=== PATIENT | female | born 1965 | race Hispanic/Latino ===

== ENCOUNTER → 2017-08-31 | Outpatient (CLI) | payer OTHER, MEDICARE ==
[~2017-08-31] MED LIST: ASPI-1197 PO; FENO145T37 PO; LOSA25TA21 PO; METF500T6 PO
== END | disposition home or self-care (01) ==
LOC: RAH 08:31
PROVIDERS: ATTEND Internal Medicine
DX: Z12.31 Encounter for screening mammogram for malignant neoplasm of breast (principal)
CPT/HCPCS: 77067

== ENCOUNTER → 2017-09-15 | Outpatient (CLI) | payer OTHER, MEDICARE | END | disposition home or self-care (01) | LOC: RAH 14:36 | PROVIDERS: ATTEND Internal Medicine | DX: R92.8 Other abnormal and inconclusive findings on diagnostic imaging of breast (principal); R92.1 Mammographic calcification found on diagnostic imaging of breast | CPT/HCPCS: 76641; 77065 ==

== ENCOUNTER 2021-05-14 02:06 | Observation (INO) | payer OTHER, MEDICARE ==
[~2021-05-14] VITALS: Ht 160 cm; Wt 80.8 kg
[~2021-05-14 02:06] MED LIST changes: +FENO145T26 PO; -FENO145T37 PO; -LOSA25TA21 PO; +LOSA25TA41 PO; +METF-444 PO; -METF500T6 PO
[2021-05-14] MEDS ORDERED: ASPIRIN 325MG TAB PO ONE (02:30)
[2021-05-14] MEDS ORDERED: 0.9%NACL 1000ML 1,000 ML IV ONE ×2 (02:30→02:32)
[2021-05-14] MEDS ORDERED: ONDANSETRON 4MG INJ IVP ONE (02:30)
[2021-05-14] MEDS ORDERED: DILTIAZEM 25MG INJ IVP ONE (02:30)
[2021-05-14 02:31] LABS: BASOPHILS % (AUTO) 0.8 % (0.0-5.0); EOSINOPHILS % (AUTO) 0.9 % (0.0-8.0); HEMATOCRIT 41.2 % (36-48); LYMPHOCYTES % (AUTO) 32.3 % (21.0-51.0); MEAN CORPUSCULAR HEMOGLOBIN 30.7 pg (27.0-33.0); MEAN CORPUSCULAR HGB CONC 34.2 g/dL (32.0-36.0); MEAN CORPUSCULAR VOLUME 89.6 fL (79-99); MONOCYTES % (AUTO) 8.1 % (3.0-13.0); NEUTROPHILS % (AUTO) 57.6 % (40.0-77.0); PLATELET COUNT (AUTO) 281 K/uL (130-400); RED CELL DISTRIBUTION WIDTH 12.8 % (11.0-15.5); WHITE BLOOD COUNT (AUTO) 10.6 K/uL (4.8-10.8)
[2021-05-14] MEDS ORDERED: ONDANSETRON 4MG INJ ONE (02:31)
[2021-05-14] MEDS ORDERED: ASPIRIN 325MG TAB ONE (02:32)
[2021-05-14] MEDS ORDERED: DILTIAZEM 50MG VIAL IV ONE ×2 (02:35→03:49)
[2021-05-14 02:46] LABS: CREATININE 0.9 mg/dL (0.5-1.5); POTASSIUM 3.4 mmol/L (3.5-5.1)
[2021-05-14 02:58] LABS: ALBUMIN 3.8 g/dL (3.5-5.0); B-TYPE NATRIURETIC PEPTIDE 20 pg/mL (0-100); BILIRUBIN,TOTAL 0.4 mg/dL (0.2-1.0); MAGNESIUM 1.7 mg/dL (1.80-2.40); THYROID STIMULATING HORMONE 1.95 uIU/mL (0.36-3.74); TOTAL PROTEIN, SERUM 7.9 g/dL (6.0-8.3)
[2021-05-14 03:15] LABS: APPEARANCE,URINE Clear (CLEAR); BILIRUBIN,URINE Negative (NEGATIVE); COLOR,URINE Yellow (YELLOW); GLUCOSE, URINE (UA) >=1000 mg/dL (NEGATIVE); KETONES,URINE Trace mg/dL (NEGATIVE); LEUKOCYTE ESTERASE ,URINE Negative (NEGATIVE); NITRATE,URINE Negative (NEGATIVE); OCCULT BLOOD,URINE Negative (NEGATIVE); PH,URINE 5.5 (5.0-8.0); PROTEIN,URINE Negative (NEGATIVE); UROBILINOGEN,URINE 0.2 mg/dL (0.2-1.0)
[2021-05-14] MEDS ORDERED: DILTIAZEM 125 MG/25 ML INJ 125 MG in 0.9%NACL 100ML 100 ML IV ONE (04:00)
[2021-05-14] MEDS ORDERED: 0.9%NACL 100ML 100 ML ONE (04:13)
[2021-05-14] MEDS ORDERED: DILTIAZEM 125 MG/25 ML INJ IV ONE (04:13)
[2021-05-14 04:23] LABS: BACTERIA,URINE Few /HPF (None Seen); RBC,URINE None Seen /HPF (0-1); WBC,URINE 0-1 /HPF (0-1)
[2021-05-14] MEDS ORDERED: DILTIAZEM 125MG+100 ML NS 125 ML IV SCH (05:00)
[2021-05-14] MEDS ORDERED: GLUCAGON 1MG KIT 1 MG ML IM PRN ×2 (05:00→10:00)
[2021-05-14] MEDS ORDERED: DEXTROSE 50%-WATER 50 ML DISP.SYRIN IV PRN ×2 (05:00→10:00)
[2021-05-14] MEDS ORDERED: DIGOXIN 250 MCG/ML 2ML AMP IV SCH (07:30)
[2021-05-14] MEDS: INSULIN R PO SS1 SQ SCH ×4 (07:30→21:00)
[2021-05-14] MEDS ORDERED: ANAS1TAB49 PO (08:29)
[2021-05-14] MEDS ORDERED: BUSP5TAB3 PO (08:29)
[2021-05-14] MEDS ORDERED: CHOL12502 PO (08:29)
[2021-05-14] MEDS ORDERED: METF-446 PO (08:29)
[2021-05-14] MEDS ORDERED: TIZA-194 PO (08:29)
[2021-05-14] MEDS ORDERED: LISI2.5T13 PO (08:29)
[2021-05-14] MEDS ORDERED: LORA10TA7 PO (08:29)
[2021-05-14] MEDS ORDERED: ALBU8.5H8 IH (08:29)
[2021-05-14] MEDS ORDERED: GLIP5TAB11 PO (08:29)
[2021-05-14] MEDS ORDERED: EMPA25TA PO (08:29)
[2021-05-14] MEDS ORDERED: ATOR40TA71 PO (08:29)
[2021-05-14] MEDS ORDERED: ICOS1CAP PO (08:29)
[2021-05-14 09:17] VITALS: BP 108/54
[2021-05-14] MEDS ORDERED: LACTULOSE 20 GM/30 ML UDCUP PO PRN (10:00)
[2021-05-14] MEDS ORDERED: BUSPIRONE HCL 5 MG TABLET PO PRN (10:00)
[2021-05-14] MEDS ORDERED: DIPHENHYDRAMINE HCL 25 MG CAPSULE PO PRN (10:00)
[2021-05-14] MEDS ORDERED: MAG/ALUM/SIMETH 30 ML UDCUP PO PRN (10:00)
[2021-05-14] MEDS ORDERED: LIDOCAINE HCL-MPF 1% 2ML VIAL IV PRN (10:00)
[2021-05-14] MEDS ORDERED: ALBUTEROL INHALER 90MCG/INH IH PRN (10:00)
[2021-05-14] MEDS ORDERED: DiphenhydrAMINE HCL 50 MG/ML VIAL IV PRN (10:00)
[2021-05-14] MEDS ORDERED: ONDANSETRON 4MG INJ IV PRN (10:00)
[2021-05-14] MEDS ORDERED: POTASSIUM CHLORIDE 10% ELIXIR 20 MEQ/15 ML UDCUP PO PRN (10:00)
[2021-05-14] MEDS ORDERED: POTASSIUM CHLORIDE 20MEQ/100ML 100 ML IV PRN (10:00)
[2021-05-14] MEDS ORDERED: ACETAMINOPHEN 325 MG TAB PO PRN ×2 (10:00)
[2021-05-14] MEDS ORDERED: INSULIN HUMULIN R 100 UNIT/ML 3ML SQ SCH (11:30)
[2021-05-14 12:33] VITALS: BP 109/56
[2021-05-14] MEDS ORDERED: MAGNESIUM 2GM PREMIX 50ML 50 ML IV ONE (14:30)
[2021-05-14] MEDS ORDERED: MAGNESIUM 2GM PREMIX 50ML 50 ML IV PRN (14:30)
[2021-05-14] MEDS: KCL 20 MEQ ERTAB PO PRN ×2 (14:32→16:38)
[2021-05-14] MEDS: DILTIAZEM 120MG SR CAP PO SCH (15:02)
[2021-05-14] MEDS: 0.9%NACL 1000ML 1,000 ML IV SCH (15:03)
[2021-05-14] MEDS: APIXABAN 5 MG TABLET PO SCH ×2 (15:03→21:12)
[2021-05-14] MEDS ORDERED: DIGOXIN 125 MCG TABLET PO SCH (16:00)
[2021-05-14 16:52] VITALS: BP 122/61
[2021-05-14 20:00] VITALS: BP 113/64
[2021-05-14] MEDS ORDERED: ATORVASTATIN 40 MG TABLET PO SCH (21:00)
[2021-05-14] MEDS ORDERED: ASPIRIN 81MG CHEW TAB PO SCH (21:00)
[2021-05-14] MEDS: METFORMIN HCL 500 MG TABLET PO SCH (21:11)
[2021-05-14] MEDS: FAMOTIDINE 20MG TAB PO SCH (21:12)
[2021-05-14] MEDS: GLIPIZIDE 5 MG TABLET PO SCH (21:13)
[2021-05-14] MEDS: POTASSIUM CHLORIDE 10MEQ SR TAB PO SCH (21:14)
[2021-05-14] MEDS: (Icosapent Ethyl (Vascepa) 2 GM) PO SCH (21:16)
[2021-05-15] VITALS: BP 107/52
[2021-05-15] MEDS: 0.9%NACL 1000ML 1,000 ML IV SCH (03:55)
[2021-05-15 04:00] VITALS: BP 111/58
[2021-05-15 05:03] LABS: MEAN CORPUSCULAR HEMOGLOBIN 30.3 pg (27.0-33.0); MEAN CORPUSCULAR HGB CONC 32.9 g/dL (32.0-36.0); MEAN CORPUSCULAR VOLUME 92.2 fL (79-99); RED BLOOD CELL COUNT(AUTO) 4.12 MIL/uL (4.00-5.50); RED CELL DISTRIBUTION WIDTH 13.1 % (11.0-15.5); WHITE BLOOD COUNT (AUTO) 5.6 K/uL (4.8-10.8)
[2021-05-15 05:31] LABS: CARBON DIOXIDE 24 mmol/L (21-32); CHLORIDE 108 mmol/L (101-111); CREATININE 0.6 mg/dL (0.5-1.5); DIGOXIN < 0.20 ng/mL (0.50-2.00); GLOMERULAR FILTR. RATE CALC 110 mL/min (>60); GLUCOSE,RANDOM 154 mg/dL (70-105); SODIUM SERUM 143 mmol/L (136-145); UREA NITROGEN, BLOOD 10 mg/dL (7-18)
[2021-05-15] MEDS: INSULIN R PO SS1 SQ SCH ×2 (06:39→11:46)
[2021-05-15 08:21] VITALS: BP 102/56
[2021-05-15] MEDS: (Icosapent Ethyl (Vascepa) 2 GM) PO SCH (09:00)
[2021-05-15] MEDS ORDERED: ERGOCALCIFEROL (VITAMIN D2) 50,000 UNIT CAPSULE PO SCH (09:00)
[2021-05-15] MEDS ORDERED: ENOXAPARIN SODIUM 40 MG/0.4 ML SYRINGE SQ SCH (09:00)
[2021-05-15] MEDS ORDERED: (Anastrozole (Arimidex) 1 MG) PO SCH (09:00)
[2021-05-15] MEDS: DILTIAZEM 120MG SR CAP PO SCH (09:33)
[2021-05-15] MEDS: APIXABAN 5 MG TABLET PO SCH (09:33)
[2021-05-15] MEDS: GLIPIZIDE 5 MG TABLET PO SCH (09:34)
[2021-05-15] MEDS: FAMOTIDINE 20MG TAB PO SCH (09:34)
[2021-05-15] MEDS: METFORMIN HCL 500 MG TABLET PO SCH (09:34)
[2021-05-15] MEDS: POTASSIUM CHLORIDE 10MEQ SR TAB PO SCH (09:39)
[2021-05-15 12:15] VITALS: BP 123/67
[2021-05-15] MEDS ORDERED: DIGO125T71 PO (13:50)
[2021-05-15] MEDS ORDERED: APIX5TAB PO (13:50)
[2021-05-15] MEDS ORDERED: DILT-36 PO (13:50)
== END 2021-05-15 15:35 | disposition home or self-care (01) ==
LOC: EDH 02:06 → EDHIP 04:20 → INTOOBSV 04:20 → 4DH 08:36
PROVIDERS: ADMIT Internal Medicine; ATTEND Internal Medicine
DX: I48.20 Chronic atrial fibrillation, unspecified (principal); Z20.822 Contact with and (suspected) exposure to COVID-19; R07.89 Other chest pain; R55 Syncope and collapse; E11.65 Type 2 diabetes mellitus with hyperglycemia; E11.42 Type 2 diabetes mellitus with diabetic polyneuropathy; E11.36 Type 2 diabetes mellitus with diabetic cataract; I10 Essential (primary) hypertension; J44.9 Chronic obstructive pulmonary disease, unspecified; H40.10X1 Unspecified open-angle glaucoma, mild stage; E04.2 Nontoxic multinodular goiter; E78.00 Pure hypercholesterolemia, unspecified; E78.5 Hyperlipidemia, unspecified; F32.9 Major depressive disorder, single episode, unspecified; G47.00 Insomnia, unspecified; K21.9 Gastro-esophageal reflux disease without esophagitis; M19.90 Unspecified osteoarthritis, unspecified site; R51.9 Headache, unspecified; R19.7 Diarrhea, unspecified; F17.200 Nicotine dependence, unspecified, uncomplicated; Z79.01 Long term (current) use of anticoagulants; Z79.82 Long term (current) use of aspirin; Z87.442 Personal history of urinary calculi; Z85.3 Personal history of malignant neoplasm of breast; Z90.711 Acquired absence of uterus with remaining cervical stump; Z79.84 Long term (current) use of oral hypoglycemic drugs
CPT/HCPCS: 36415 ×2; 71045; 80048; 80053; 80162; 81001; 82550 ×2; 82948 ×6; 83605 ×2; 83690; 83735 ×2; 83874 ×2; 83880; 84443; 84484 ×3; 85025; 85027; 87635; 87804 ×2; 93005; 96361 ×2; 96365; 96366; 96368; 96375; 96376; 99285; C9803; G0378 ×36; J2405; J3475; J3490 ×4; J7030 ×2

== ENCOUNTER 2021-11-14 06:00 | Day surgery (SDC) | payer OTHER, MEDICARE ==
[2021-11-12 10:47] VITALS: BP 134/64
[2021-11-12 11:40] LABS: BASOPHILS % (AUTO) 0.8 % (0.0-5.0); EOSINOPHILS % (AUTO) 0.6 % (0.0-8.0); HEMATOCRIT 39.6 % (36-48); LYMPHOCYTES % (AUTO) 35.4 % (21.0-51.0); MEAN CORPUSCULAR HEMOGLOBIN 30.9 pg (27.0-33.0); MEAN CORPUSCULAR HGB CONC 32.8 g/dL (32.0-36.0); MEAN CORPUSCULAR VOLUME 94.1 fL (79-99); NEUTROPHILS % (AUTO) 53.8 % (40.0-77.0); PLATELET COUNT (AUTO) 338 K/uL (130-400); RED BLOOD CELL COUNT(AUTO) 4.21 MIL/uL (4.00-5.50); RED CELL DISTRIBUTION WIDTH 13.5 % (11.0-15.5); WHITE BLOOD COUNT (AUTO) 5.1 K/uL (4.8-10.8)
[2021-11-12 11:46] LABS: CREATININE 0.7 mg/dL (0.5-1.5); POTASSIUM 4.2 mmol/L (3.5-5.1)
[2021-11-12 12:02] LABS: INR 0.93 (0.85-1.15); PROTHROMBIN TIME 10.1 SEC (9.6-11.6)
[2021-11-12 12:03] LABS: PARTIAL THROMBOPLASTIN TIME 25.1 SEC (26.3-35.5)
[2021-11-14] VITALS (8 sets, daily range): BP systolic 114–122; BP diastolic 60–65
[~2021-11-14] VITALS: Ht 160 cm; Wt 83.8 kg
[~2021-11-14 06:00] MED LIST changes: +0.9% NACL 500ML IV.SOLN 500 ML IV SCH; +ANAS1TAB49 PO; -ASPI-1197 PO; +BUSP5TAB3 PO; -FENO145T26 PO; +GLIP-162 PO; +ICOS1CAP PO; +LINA5TAB PO; -LOSA25TA41 PO; -METF-444 PO; +PIOG30TA70 PO; +RIVA20TA PO; +VERA120T92 PO
[2021-11-14] MEDS ORDERED: 0.9%NACL 1000ML 1,000 ML IV ONE (06:25)
[2021-11-14] MEDS ORDERED: HEPARIN 1,000 UNIT VIAL ONE (07:35)
[2021-11-14] MEDS ORDERED: MIDAZOLAM HCL 1 MG/ML 2ML VIAL ONE (07:35)
[2021-11-14] MEDS ORDERED: MEPERIDINE-PF 25 MG/ML SYG ONE (07:35)
[2021-11-14] MEDS ORDERED: LIDOCAINE HCL 400MG/20ML VIAL ONE (07:36)
[2021-11-14] MEDS ORDERED: LIDOCAINE HCL 1% 20 ML VIAL ONE (08:18)
[2021-11-14] MEDS ORDERED: ISOPROTERENOL HCL 0.2 MG/ML AMP/VIAL/BAG ONE (08:53)
== END 2021-11-14 13:40 | disposition home or self-care (01) ==
LOC: DAH 06:00
PROVIDERS: ATTEND Internal Medicine Cardiovascular Disease
DX: I47.1 Supraventricular tachycardia (principal); E11.9 Type 2 diabetes mellitus without complications; E78.00 Pure hypercholesterolemia, unspecified; Z90.710 Acquired absence of both cervix and uterus; Z98.890 Other specified postprocedural states; Z79.01 Long term (current) use of anticoagulants; Z79.899 Other long term (current) drug therapy
CPT/HCPCS: 36415; 80048; 82948 ×2; 85025; 85610; 85730; 93620; 93621; 93623; A4215; A4216; A4221; A4222; A4223 ×3; A4606; A4649 ×2; A4663; C1730 ×4; C1894 ×5; J1644 ×2; J2175; J2250; J3490 ×2; J7030; 99156; 99157

== ENCOUNTER → 2024-05-10 | Outpatient (CLI) | payer OTHER, MEDICARE ==
[~2024-05-10] MED LIST changes: -0.9% NACL 500ML IV.SOLN 500 ML IV SCH; -RIVA20TA PO
--- NOTE | 2024-05-11 20:17 | HMCSR ---
APPROVED REPORT EXAM: Two-dimensional and M-mode echocardiogram with Doppler and color Doppler. INDICATION Atrial Fibrillation RISK FACTORS Diabetes 2D Dimensions RVDd3.7 cmLVEF(%)44.4 (>50%)LVED Vol(simp.)103.0 mL IVSd0.8 (0.7-1.1cm)FS(%)22 %LVES Vol(simp.)54.0 mL LVDd5.7 (3.8-5.6cm)LVOT diam2.0 (1.8-2.4cm)LVEF(%, simp.)47 % PWd0.8 (0.7-1.1cm)IVC diam1.2 cmLA ESV INDEX (BP)21.08 mL/m2 LVDs4.5 (2.5-4.0cm) Aortic Valve AoV Vmax1.3 m/Jerry Peak GR6.8 mmHgLVOT Vmax0.8 m/s AoV VTI0.3 mAo Mean GR3.8 mmHgLVOT VTI0.19 m MAGALIE (VMAX)2.0 cm2Al P1/2T983 msAVA (VTI) 2.0 cm2 Mitral Valve MV E Vmax64.6 cm/sDECEL Jvul221 ms MV A Vmax62.8 cm/sP 1/2 T50 ms E/A ratio1.0MVA (PHT)4.4 cm2 MR Max PG72 mmHg TDI E/E' Wchcpe33.7E/E' Lateral8.4 Pulmonary Valve PV Vmax0.9 m/sPV VTI0.23 mPV Mean GR2 mmHg PV Peak GR3.4 mmHg Tricuspid Valve TR Vmax2.0 m/sRAP (EST) 3 hdNaTBTK37.8 mmHg TR Peak GR15.8 mmHg Left Ventricle The left ventricle is dilated. There is normal left ventricular wall thickness. Left ventricle systol ic function is normal. LVEF is 45-50%. Left ventricular filling pattern is normal for age. Right Ventricle The right ventricle is normal size. Right ventricular systolic function is mildly reduced. Atria The left atrium size is normal. The right atrium size is normal. Aortic Valve Aortic valve is trileaflet. Aortic valve leaflets are sclerotic but open well. Trace aortic regurgita tion. There is no aortic valvular stenosis. Mitral Valve Mitral valve leaflets are sclerotic but open well. Mitral regurgitation is trace There is no mitral v alve stenosis. Tricuspid Valve The tricuspid valve leaflets appear normal. There is trace tricuspid regurgitation. Pulmonic Valve The pulmonic valve leaflets are thin and pliable; valve motion is normal. There is no pulmonic valvul ar regurgitation. Great Vessels The aortic root is not well visualized but is probably normal size. The IVC is normal in size and col lapses >50% with inspiration. Pericardium No pericardial effusion. Conclusion The left ventricle is dilated. Left ventricle systolic function is normal. LVEF is 45-50%. Left ventricular filling pattern is normal for age. Right ventricular systolic function is mildly reduced. Trace aortic regurgitation. Mitral regurgitation is trace There is trace tricuspid regurgitation.
== END | disposition home or self-care (01) ==
LOC: SHCH 08:20
PROVIDERS: ATTEND Internal Medicine Cardiovascular Disease
DX: I08.0 Rheumatic disorders of both mitral and aortic valves (principal); I48.0 Paroxysmal atrial fibrillation; E11.9 Type 2 diabetes mellitus without complications
CPT/HCPCS: 93306

== ENCOUNTER → 2024-06-17 | Outpatient (CLI) | payer OTHER, MEDICARE ==
[2024-06-17] MEDS: REGADENOSON 0.4 MG/5 ML PF SYG IVP ONE (13:34)
--- NOTE | 2024-06-17 19:14 | HMCSR ---
APPROVED REPORT Height: 5 ft 4in Weight: 167 lbs TEST INDICATIONS A FIB AND FLUTTER, SUPRAVENTRICULAR TACHYCARDIA The imaging protocol used to acquire images was Rest Tc-99m/stress Tc-99m 1 day Consent: The procedure was explained and understood by the patient. Informerd consent was witnessed Chris Schroeder RN First, low dose rest was performed then high dose stress. RESTING DATA: The resting ekg shows: NSR, RBBB, LAFB Rest SPECT myocardial perfusion imaging was performed in supine position 83 minutes following the int ravenous injection of 12.1 mCi of Tc-99 Sestamibi. Time of rest injection: 09:04: Date: 06/17/2024 Time of rest imagin:27: Date: 06/17/2024 PHARMACOLOGIC STRESS: Pharmacologic stress test was performed by injecting regadenoson 0.4 mg IV push followed by the intra venous injection of 30.1 mCi of Tc-99 Sestamibi. Time of stress injection: 11:16: Date: 06/17/2024 Time of stress imagin:32: Date: 06/17/2024 Heart Rate at time of stress injection: 66 bpm. Gated Stress SPECT was performed 76 minutes after stress injection. The images were gated to evaluate regional wall motion and calculate left ventricular ejection fracti on. STRESS DETAILS Reason for Termination: Infusion complete Stress Symptoms: Chest Pain Max HR Achieved: 93 bpm % of APMHR Achieved: 58 Max Blood Pressure: 136/78 mmHg Stress ECG: NSR, RBBB, LAFB Study quality was good. Lung uptake was Normal. Artifact: No artifact IMPRESSION Normal pharmacologic nuclear stress test. Conclusion Normal perfusion. LVEF 65%.
== END | disposition home or self-care (01) ==
LOC: SHCH 08:37
PROVIDERS: ATTEND Internal Medicine Cardiovascular Disease
DX: I48.0 Paroxysmal atrial fibrillation (principal); I47.10 Supraventricular tachycardia, unspecified; R07.9 Chest pain, unspecified
CPT/HCPCS: 78452; 93017; J2785; A9500 ×2